=== PATIENT | male | born 1990 | race African-American/Black ===

== ENCOUNTER 2021-04-20 20:06 | Emergency (ER) | payer SELFPAY ==
[~2021-04-20] VITALS: Ht 193 cm; Wt 136.0 kg
[2021-04-20 20:30] VITALS: BP 137/83
[2021-04-20] MEDS ORDERED: KETOROLAC 60MG/2ML VIAL IM ONE (21:00)
[2021-04-20] MEDS ORDERED: IBUP-2028 MT (21:49)
== END 2021-04-20 22:25 | disposition home or self-care (01) ==
LOC: ER 20:06
DX: S52.122A Displaced fracture of head of left radius, initial encounter for closed fracture (principal); W18.39XA Other fall on same level, initial encounter; Y93.89 Activity, other specified; Y92.89 Other specified places as the place of occurrence of the external cause; Y99.8 Other external cause status
CPT/HCPCS: 73060; 73080; 73090; 96372; 99284; J1885

== ENCOUNTER 2022-06-30 10:45 | Emergency (ER) | payer SELFPAY ==
[~2022-06-30] VITALS: Ht 193 cm; Wt 127.0 kg
[~2022-06-30 10:45] MED LIST: IBUP-2028 MT
[2022-06-30 12:03] LABS: CLARITY URINE CLEAR (CLEAR); COLOR URINE YELLOW (YELLOW); KETONES URINE 4+ (NEGATIVE); LEUKOCYTE ESTERASE URINE NEGATIVE (NEGATIVE); NITRITE URINE NEGATIVE (NEGATIVE); OCCULT BLOOD URINE TRACE (NEGATIVE); PROTEIN URINE 1+ (NEGATIVE); SPECIFIC GRAVITY URINE 1.045 (1.005-1.030); UROBILINOGEN URINE 0.2 E.U./dL (0.2-1.0)
[2022-06-30 13:28] LABS: CHLORIDE 96 mEq/L (98-107)
[2022-06-30 13:42] LABS: HEMATOCRIT. 44.5 % (42.0-52.0); HEMOGLOBIN. 15.9 g/dL (14.0-18.0); MEAN PLATELET VOLUME 10.3 fl (7.4-10.4); PLATELET 308 x1000/uL (130-400); RED BLOOD CELL COUNT 5.11 mill/uL (4.7-6.1)
[2022-06-30 14:05] LABS: PLATELET ESTIMATE NORMAL
[2022-06-30] MEDS ORDERED: METF-873 MT (15:10)
[2022-06-30 15:47] VITALS: BP 138/87
== END 2022-06-30 15:48 | disposition home or self-care (01) ==
LOC: ER 11:22
DX: E11.65 Type 2 diabetes mellitus with hyperglycemia (principal); R35.0 Frequency of micturition
CPT/HCPCS: 36415; 80053; 81003; 83036; 85025; 99283